=== PATIENT | female | born 1970 | race Caucasian/White ===

== ENCOUNTER 2017-12-11 10:05 | Emergency (ER) | payer BC ==
[2017-12-11 10:24] VITALS: BP 114/71
--- NOTE | 2017-12-11 10:57 | UC ---
Headache HPI - HPI Summary HPI Summary: 47 yo WF w/ h/o Hypothyroidism and ADD p/w left sided ISIDRO associated with left facial numbness, tingling and "difficulty finding words" since about 630AM this morning. Pt is communicating in full sentences but feels "discombobulated" w/o hemiparesis or gait disturbance. Had migraine with left pulsatile ISIDRO 2 yrs ago but left facial numbness and trouble finding words is different and more concerning to pt and . - History Of Current Complaint Chief Complaint: UCDizziness Stated Complaint: HEADACHE, FACE NUMBNESS, NAUGSE Hx Obtained From: Patient, Family/Academic Affairs Dean Hx From Patient Unobtainable Due To: Other Hx Last Menstrual Period: 3 weeks Onset/Duration: Sudden Onset, Lasting Hours Onset Of Symptoms: Gradual Initially Headache Was: Moderate Currently Pain Is: Moderate Pain Intensity: 6 - Allergies/Home Medications Allergies/Adverse Reactions: Allergies Allergy/AdvReac Type Severity Reaction Status Date / Time MS NSAIDs [NSAIDs] Allergy Facial Verified 12/11/17 10:24 Redness/Flushing PMH/Surg Hx/FS Hx/Imm Hx - Additional Past Medical History Additional PMH: Hypothryroidism and ADD - Surgical History Surgical History: Yes Surgery Procedure, Year, and Place: csection - Social History Alcohol Use: Occasionally Substance Use Type: None Smoking Status (MU): Former Smoker Review of Systems Constitutional: Negative Skin: Negative Eyes: Negative ENT: Negative Respiratory: Negative Cardiovascular: Negative Gastrointestinal: Negative Genitourinary: Negative Motor: Negative Neurovascular: Decreased Sensation - on left side of face Musculoskeletal: Negative, Other: - NO weakness Neurological: Headache, Other - NO weakness or gait disturbance Psychological: Anxious Is Patient Immunocompromised?: Yes All Other Systems Reviewed And Are Negative: Yes Physical Exam Triage Information Reviewed: Yes Appearance: Obese, Other: - NO facial asymmetry or dysarthira Vital Signs: Initial Vital Signs Temp 36.5 C 12/11/17 10:14 Pulse 63 12/11/17 10:14 Resp 20 12/11/17 10:14 BP 114/71 12/11/17 10:14 Pulse Ox 98 12/11/17 10:14 Eye Exam: Normal Eyes: Positive: Conjunctiva Clear ENT: Positive: Normal ENT inspection Neck exam: Normal Neck: Positive: Supple Respiratory Exam: Normal Respiratory: Positive: Normal breath sounds, No respiratory distress Cardiovascular Exam: Normal Cardiovascular: Positive: RRR Musculoskeletal Exam: Normal Neurological Exam: Other - NO FACIAL asymmetry mild numbness on left side of face Neurological: Positive: Alert, Other: - PHOTOPHOBIC AND NAUSEOUS, no hemiparesis , strength in UE/LE 2+ Psychological: Positive: Normal Response To Family Skin Exam: Normal Headache Course/Dx - Course Course Of Treatment: ambulance called before EKG obtained and concurrent to hx and triage all being obtained, during which pt continued to become more photophobic and nauseous, BS 114, BP 114/71. Called ambulance to transfer to ED to r/o acute CVA vs TIA vs intractable migraine - Differential Dx/Diagnosis Differential Diagnosis/HQI/PQRI: CVA, TIA, Migraine, Subarachnoid Hemorrhage, Tension Headache, Viral Syndrome, Other Provider Diagnoses: Left facial numbness. Headache Discharge - Discharge Plan Condition: Fair Disposition: ADMITTED TO [facility] Discharge Disposition Comment: Pt transferred to [facility] via ambulance, discussed case with Dr Hernandez Referrals: Cam Daniel MD [Primary Care Provider] -
== END 2017-12-11 10:29 | disposition short-term general hospital (02) ==
LOC: UCEAST 10:05
DX: R51 Headache (principal); R20.0 Anesthesia of skin; R11.0 Nausea; E03.9 Hypothyroidism, unspecified; Z88.6 Allergy status to analgesic agent; Z87.891 Personal history of nicotine dependence
CPT/HCPCS: 99213; G0463

== ENCOUNTER 2017-12-11 10:50 | Emergency (ER) | payer BC ==
[2017-12-11] MEDS ORDERED: NS 0.9% 1000 ML* 1,000 ML IV ONE (11:27)
[2017-12-11] MEDS ORDERED: diPHENhydraMINE IV* 50 MG/ML 1 ml VIAL (BENADRYL) IV ONE (11:27)
[2017-12-11] MEDS ORDERED: fentaNYL* 50 MCG/ML 2 ML VIAL (100 MCG VIAL) IV ONE (11:27)
[2017-12-11] MEDS ORDERED: Metoclopramide IV* 5 MG/ML 2 ML VIAL IV ONE (11:27)
--- NOTE | 2017-12-11 12:04 | RAD ---
Indication: LEFT worse than RIGHT headache, nausea, vomiting. LEFT face paresthesias. Light sensitivity. Comparison: July 27, 2015 Technique: Noncontrast CT vertex of skull through foramen magnum. Report: The sulci, ventricles, and basal cisterns are normal for age. Subramanian matter white matter differentiation is preserved without evidence for edema. No intra or extra axial hemorrhage, mass, or fluid collection detected. Unremarkable visualized orbital contents. Unremarkable calvarium and skull base. Unremarkable scalp. Partially visualized paranasal sinuses with mucosal thickening and partial opacification of the ethmoid and RIGHT sphenoid sinuses. Negative for paranasal sinus fluid levels within the [id number]. Partially visualized mastoid air spaces are clear. IMPRESSION: 1. No CT abdomen malleolus of the brain. 2. Paranasal sinus disease.
[2017-12-11 12:26] LABS: ABS Basophils 0.1 10^3/ul (0-0.2); ABS Eosinophils 0.1 10^3/ul (0-0.6); ABS Lymphocytes 1.7 10^3/ul (1.0-4.8); ABS Monocytes 0.4 10^3/ul (0-0.8); ABS Neutrophils 5.6 10^3/ul (1.5-7.7); ABS Nucleated RBC 0 10^3/ul; Eosinophil % 1.4 % (0-6); Hematocrit 39 % (35-47); Hemoglobin 13.3 g/dl (12.0-16.0); Mean Corpuscular HGB Conc 34 g/dl (31-36); Mean Corpuscular Hemoglobin 30 pg (27-31); Mean Corpuscular Volume 88 fL (80-97); Mean Platelet Volume 10 um3 (7.4-10.4); Nucleated Red Blood Cells % 0.1; Platelet Count 194 10^3/ul (150-450); Red Blood Count 4.45 10^6/ul (4.0-5.4); Red Cell Distribution Width 14 % (10.5-15); White Blood Count 7.9 10^3/ul (3.5-10.8)
[2017-12-11 12:45] LABS: EGFR Non-African American 104.1 (>60)
[2017-12-11 13:08] VITALS: BP 112/80
--- NOTE | 2017-12-13 08:32 | ED ---
Destin Dumas Thomas, scribed for Nicholas Sousa MD on 12/11/17 at 1116 . Headache - HPI Summary HPI Summary: The patient is a 47 year old female brought in by ambulance from urgent care with a severe headache that woke her up this morning at 06:30. The patient took acetaminophen earlier today, to no relief of pain. She additionally complains of left-sided facial numbness that is mostly resolved by time of examination in the emergency department. The patient reports feelings disshelved and my peripheral vision is narrowing. She has a history of migraines. She denies blurry vision. - History Of Current Complaint Stated Complaint: HEADACHE FROM CC Time Seen by Provider: 12/11/17 10:55 Hx Obtained From: Patient Hx Last Menstrual Period: 3 weeks Onset/Duration: Started hours ago - present when woke up this morning, Still Present Currently Pain Is: Severe Timing: Constant Character: Migraine Allevating Factors: Nothing - no relief of acetaminophen Associated Signs And Symptoms: Other (Noted In Comments) - headache, left-sided facial numbness, "disshelved", "peripheral vision narrowing"; NEGATIVE: blurry vision - Allergies/Home Medications Allergies/Adverse Reactions: Allergies Allergy/AdvReac Type Severity Reaction Status Date / Time MS NSAIDs [NSAIDs] Allergy Facial Verified 12/11/17 10:24 Redness/Flushing Home Medications: Home Medications Amphetamine MIXED SALTS TAB* [Adderall TAB*] 1 tab PO BID 12/11/17 [History Confirmed 12/11/17] PMH/Surg Hx/FS Hx/Imm Hx Endocrine/Hematology History: Reports: Hx Thyroid Disease Neurological History: Reports: Hx Migraine - Surgical History Surgery Procedure, Year, and Place: csection Infectious Disease History: Reports: Hx Shingles - 2013 Denies: Traveled Outside the [place] in Last 30 Days - Family History Known Family History: Negative: Blood Disorder - Social History Alcohol Use: Occasionally Substance Use Type: Reports: None Smoking Status (MU): Former Smoker Review of Systems Positive: Other - "disheveled" Positive: Other - "peripheral vision narrowing". Negative: Blurred Vision Positive: Headache, Numbness - left-sided facial All Other Systems Reviewed And Are Negative: Yes Physical Exam - Summary Physical Exam Summary: VITAL SIGNS: Reviewed. GENERAL: Patient is a well-developed and nourished female who is lying comfortable in the stretcher. Patient is not in any acute respiratory distress. HEAD AND FACE: No signs of trauma. No ecchymosis, hematomas or skull depressions. No sinus tenderness. EYES: PERRLA, EOMI x 2, No injected conjunctiva, no nystagmus. No photophobia. EARS: Hearing grossly intact. Ear canals and tympanic membranes are within normal limits. MOUTH: Oropharynx within normal limits. NECK: Supple, trachea is midline, no adenopathy, no JVD, no carotid bruit, no c- spine tenderness, neck with full ROM. No meningeal signs, no Kernig's or brudzinskis signs. CHEST: Symmetric, no tenderness at palpation LUNGS: Clear to auscultation bilaterally. No wheezing or crackles. CVS: Regular rate and rhythm, S1 and S2 present, no murmurs or gallops appreciated. ABDOMEN: Soft, non-tender. No signs of distention. No rebound no guarding, and no masses palpated. Bowel sounds are normal. EXTREMITIES: FROM in all major joints, no edema, no cyanosis or clubbing. NEURO: Alert and oriented x 3. No acute neurological deficits. Speech is normal and follows commands. SKIN: Dry and warm GCS: 15 Triage Information Reviewed: Yes Vital Signs Reviewed: Yes Diagnostics - Laboratory Result Diagrams: 12/11/17 12:13 12/11/17 12:13 Lab Statement: Any lab studies that have been ordered have been reviewed, and results considered in the medical decision making process. - CT CT Brain CT Interpretation: No Acute Changes - 1. No CT abdomen malleolus of the brain. 2. Paranasal sinus disease. Dr. Sousa has reviewed this report. CT Interpretation Completed By: Radiologist Re-Evaluation - Re-Evaluation First Eval Re-Evaluation Time: 13:03 Change: Improved Comment: She feels better. Her pain is 2/10. Headache Course/Dx - Course Assessment/Plan: The patient is a 47 year old female brought in by ambulance from urgent care with a severe headache that woke her up this morning at 06:30. The patient took acetaminophen earlier today, to no relief of pain. She additionally complains of left-sided facial numbness that is mostly resolved by time of examination in the emergency department. The patient reports feelings disheveled and my peripheral vision is narrowing. She has a history of migraines. She denies blurry vision. Test results are without significant abnormality. CT Head shows 1. No CT abdomen malleolus of the brain. 2. Paranasal sinus disease. In the ED course, the patient was given IV fluids, Reglan, Benadryl, and fentanyl for the pain. After the medication, the patient s symptoms improved. Her pain is now 1-2/10 and she wants to go home. Therefore , the patient was given a prescription for Fioricet and will follow up with primary care. - Diagnoses Provider Diagnoses: Migraine headache Discharge - Discharge Plan Condition: Stable Disposition: HOME Prescriptions: Butalb/Acetamin/Caff TAB* [Fioricet TAB*] 1 tab PO Q6H PRN #12 tab MDD 4 PRN Reason: Pain Patient Education Materials: Migraine Headache (ED) Referrals: Rakan Olmstead MD [Primary Care Provider] - 3 Days Additional Instructions: Follow up with your primary care provider in three days. Return to the emergency department for any new or worsening symptoms. The documentation as recorded by the Destin alicia Thomas accurately reflects the service I personally performed and the decisions made by me, Nicholas Sousa MD.
== END 2017-12-11 13:17 | disposition home or self-care (01) ==
LOC: ED 10:50
DX: G43.909 Migraine, unspecified, not intractable, without status migrainosus (principal); Z87.891 Personal history of nicotine dependence; E07.9 Disorder of thyroid, unspecified
CPT/HCPCS: 36415; 70450; 80053; 82375; 83605; 85025; 85652; 96360; 96374; 96375; 99285; J1200; J2765; J3010